=== PATIENT | female | born 1945 ===

== ENCOUNTER → 2017-09-15 | Outpatient (CLI) | payer OTHER | END | disposition home or self-care (01) | LOC: C.PATHSPEC 17:06 | PROVIDERS: ATTEND Dermatology | DX: L82.0 Inflamed seborrheic keratosis (principal) ==

== ENCOUNTER → 2018-01-29 | Outpatient (CLI) | payer OTHER, MEDICARE | END | disposition home or self-care (01) | LOC: C.LABBC 09:29 | PROVIDERS: ATTEND Family Medicine | DX: E78.5 Hyperlipidemia, unspecified (principal) ==